=== PATIENT | male | born 1990 | race Caucasian/White ===

== ENCOUNTER 2017-06-11 17:54 | Emergency (ER) | payer SELFPAY ==
[~2017-06-11] VITALS: Ht 167.6 cm; Wt 54.0 kg
[2017-06-12] MEDS ORDERED: SULFAMETHOXAZOLE/TRIMETHOPRIM 800/160MG TABLET PO ONE (01:30)
[2017-06-12] MEDS ORDERED: HYDROCODONE/ACETAMINOPHEN 5/325MG TABLET PO ONE (01:30)
[2017-06-12 01:35] VITALS: BP 143/94
== END 2017-06-12 02:00 | disposition home or self-care (01) ==
LOC: ER 17:54
DX: B35.3 Tinea pedis (principal); L03.115 Cellulitis of right lower limb; F17.210 Nicotine dependence, cigarettes, uncomplicated
CPT/HCPCS: 99283; Z7610

== ENCOUNTER 2018-06-04 13:52 | Emergency (ER) | payer MEDICAID ==
[~2018-06-04] VITALS: Ht 162.6 cm; Wt 64.0 kg
[2018-06-04 14:15] VITALS: BP 115/70
== END 2018-06-04 17:40 | disposition left against medical advice (07) ==
LOC: ER 14:55
DX: S62.302D Unspecified fracture of third metacarpal bone, right hand, subsequent encounter for fracture with routine healing (principal); X58.XXXD Exposure to other specified factors, subsequent encounter
CPT/HCPCS: 99281

== ENCOUNTER 2020-03-11 22:56 | Emergency (ER) | payer SELFPAY ==
[~2020-03-11] VITALS: Ht 167.6 cm; Wt 66.0 kg
[2020-03-12] MEDS ORDERED: LIDOCAINE 1%/EPI 1:100,000 10 ML VIAL IJ ONE (00:30)
[2020-03-12] MEDS ORDERED: BALANCED SALT IRRIG SOLN 15ML IR ONE (00:30)
[2020-03-12] MEDS ORDERED: BACITRACIN ZINC OINT UDPKT TOP ONE (00:30)
[2020-03-12] MEDS ORDERED: FLUORESCEIN SODIUM 1MG/STRIP RIGHTEYE ONE (00:30)
[2020-03-12] MEDS ORDERED: TETRACAINE 0.5% OPHTH DROPS 4ML RIGHTEYE ONE (00:30)
[2020-03-12] MEDS ORDERED: LIDOCAINE HCL/EPINEPHRINE 1%-EPI 1:100,000 20 ML VIAL INFIL NR (00:45)
[2020-03-12] MEDS ORDERED: IBUPROFEN 600MG TABLET PO STA (03:32)
[2020-03-12 04:32] VITALS: BP 119/65
== END 2020-03-12 04:33 | disposition home or self-care (01) ==
LOC: ER 22:56
DX: S01.81XA Laceration without foreign body of other part of head, initial encounter (principal); S70.02XA Contusion of left hip, initial encounter; S05.11XA Contusion of eyeball and orbital tissues, right eye, initial encounter; Y08.89XA Assault by other specified means, initial encounter; Y93.89 Activity, other specified; Y92.89 Other specified places as the place of occurrence of the external cause; Y99.8 Other external cause status
CPT/HCPCS: 12013; 70450; 70486; 73502; 99285; J3490